=== PATIENT | female | born 1995 | race Caucasian/White ===

== ENCOUNTER 2016-10-14 00:14 | Emergency (ER) | payer OTHER ==
[2016-10-14] MEDS ORDERED: ONDANSETRON 4MG/2ML VIAL (J2405) As Ordered ONE (01:19)
[2016-10-14] MEDS ORDERED: ONDANSETRON 4 MG ORAL DISINTEGRATING TAB (S0181) As Ordered ONE (02:41)
--- NOTE | 2016-10-14 03:05 | EDDOCDS ---
Nurse's Notes [facility] Name: Pricilla West Age: 21 yrs Sex: Female : 1995 Arrival Date: 10/14/2016 Time: 00:14 Bed 8 Private MD: Diagnosis: Other viral enteritis Presentation: 10/14 00:24 Presenting complaint: Patient states: she developed N/V/D in the waiting room while cz sitting with who is here with same symptoms. Adult Sepsis Screening: The patient does not have new or worsening altered mentation. Patient's respiratory rate is less than 22. Systolic blood pressure is greater than 100. Patient has a qSOFA score of 0- Negative Sepsis Screen. Suicide/Homicide risk assessment- the patient denies having any suicidal and/or homicidal ideations and does not present with any other emotional, behavioral or mental health complaints. Status: The patient is a dependent. Transition of care: patient was not received from another setting of care. 00:24 Acuity: YUDELKA Level 3 cz 00:24 Method Of Arrival: Walkin/Carried/Asstd cz Triage Assessment: 00:25 General: Appears in no apparent distress. Pain: Location: abdomen Pain currently is 5 cz out of 10 on a pain scale. Pt Declines HIV testing. 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 none - PMHx: none; - PSHx: none; - The history from nurses notes was reviewed: and I agree with what is documented. - Social history: Smoking status: Patient states was never smoker of tobacco. No barriers to communication noted, The patient speaks fluent Turkish, Speaks appropriately for age. - : The pt / caregiver states he / she is not on anticoagulants. Home medication list is obtained from the patient. - Hospitalizations: : No recent hospitalization is reported. - Exposure Risk Screening:: None identified. - Immunization history:: All immunizations up-to-date. - Family history: Not pertinent. - Social history:: the patient is a non-smoker, the patient does not drink alcohol. Screenin:45 Screening information is obtained from the patient. Fall risk: No risks identified. ko2 Assistance ADL's: requires no assistance with activities of daily living. Abuse/DV Screen: The patient / caregiver reports he/she is: not in a situation that causes fear, pain or injury. Nutritional screening: No deficits noted. Advance Directives: Currently, there is no health care proxy. There is no active DNR order. There is no living will. There is no Power of Sports Nutritionist. home support is adequate. Assessment: 00:45 General: Appears in no apparent distress, comfortable, Behavior is appropriate for age, ko2 cooperative. Neurological: Level of Consciousness is awake, alert. Respiratory: Airway is patent Respiratory effort is even, unlabored. GI: Abdomen is distended, Bowel sounds present X 4 quads. Abd is soft X 4 quads Reports diarrhea, nausea, vomiting. Derm: No deficits noted. 01:45 General: Appears in no apparent distress, comfortable, Behavior is appropriate for age, ko2 cooperative. Neurological: Level of Consciousness is awake, alert. Respiratory: Airway is patent Respiratory effort is even, unlabored. Derm: No deficits noted. 02:55 GI: Denies vomiting. oct 02:55 General: Appears in no apparent distress, comfortable, Behavior is cooperative, giovana pleasant. Respiratory: Airway is patent Respiratory effort is even, unlabored, Respiratory pattern is regular, symmetrical. Derm: Skin is pink, warm & dry. Vital Signs: 00:25 BP 119 / 68; Pulse 95; Resp 16; Temp 97.4(T); Pulse Ox 99% on R/A; Weight 50.35 kg; cz Height 5 ft. 3 in. (160.02 cm); 02:43 BP 105 / 54; Pulse 92; Resp 18; Temp 98.1(O); Pulse Ox 100% on R/A; Pain 0/10; jmv 00:25 Body Mass Index 19.66 (50.35 kg, 160.02 cm) Vitals: 00:25 Log In Time: October 14, 2016 at 00:17. ED Course: 00:16 Patient visited by Brigida Marr. lja 00:16 Patient moved to Waiting lja 00:22 Patient moved to Triage 1 cz 00:25 Triage Initiated cz 00:28 Patient moved to Pre RCE cz 00:40 Merle Cuello,RN is Primary Nurse. jmb 00:40 Patient moved to 8 jmb 00:56 Osvaldo Enrique MD is Attending Physician. pc 00:59 Patient visited by Osvaldo Enrique MD. pc 01:11 Inserted saline lock: 20 gauge in right antecubital area. mgs 01:27 The patient / caregiver is instructed regarding the plan of care and ED course. ko2 01:45 Patient visited by Merle Cuello RN. ko2 02:37 [facility] is Referral Physician. pc 02:44 Patient visited by Ankit Guzman PCA. jmv 02:55 Discontinued lock bleeding controlled, pressure dressing applied, No redness/swelling giovana at site. No procedures done that require assistance. Administered Medications: 01:26 Drug: NS 0.9% 1000 ml [sodium chloride 0.9 % intravenous solution] Route: IV; Rate: mgs bolus; Site: right antecubital; 03:00 Follow up: IV Status: Completed infusion; IV Intake: 1000ml ko2 01:26 Drug: Ondansetron 4 mg [ondansetron HCl 2 mg/mL intravenous solution (2 mL)] Route: mgs IVP; Site: right antecubital; 02:53 Drug: Ondansetron ODT 4 mg [ondansetron 4 mg disintegrating tablet (1 tabs)] Route: PO; giovana Intake: 02:55 IV: 1000.00ml (NS); Total: 1000.00ml. giovana 03:00 IV: 1000.00ml; Total: 2000.00ml. ko2 Order Results: There are currently no results for this order. Outcome: 02:37 Discharge ordered by Provider. pc 03:04 Patient left the ED. giovana Signatures: Osvaldo Enrique MD MD pc Newman, Jill New, RN RN jan Zecher, Calvin, RN RN cz Becker, Joshua, RN RN jmb Ogden, Kari, RN RN ko2 Albert Pace,Brigida Michele RN, Jose, PCA TRAIN CALLER jmv Corrections: (The following items were deleted from the chart) 01:25 General: Appears in no apparent distress, comfortable, Behavior is appropriate ko2 for age, cooperative, ko2 01:25 Neurological: Level of Consciousness is awake, alert, ko2 ko2 01:25 Respiratory: Airway is patent Respiratory effort is even, unlabored, ko2 ko2 01:25 GI: Abdomen is distended, Bowel sounds present X 4 quads. Abd is soft X 4 quads ko2 Reports diarrhea, nausea, vomiting, ko2 01:26 01:25 Derm: No deficits noted. ko2 ko2 MTDD
--- NOTE | 2016-10-14 03:05 | EDDOCDS ---
Physician Documentation [facility] Name: Pricilla West Age: 21 yrs Sex: Female : 1995 Arrival Date: 10/14/2016 Time: 00:14 Bed 8 Private MD: Disposition: 10/14 02:35 Critical Care: Critical care not applicable. pc Disposition: 10/14/16 02:37 Discharged to Home/Self Care. Impression: Other viral enteritis. - Condition is Stable. - Discharge Instructions: Clear Liquid Diet, Viral Gastroenteritis. - Prescriptions for ZOFRAN ODT 4 mg - dissolve 1 tablet by ORAL route 4 times per day As needed do not chew, do not swallow whole; 10 tablet. - Medication Reconciliation, Local Pharmacy Hours form. - Follow up: [facility]; When: As needed; Reason: Continuance of care. - Problem is new. - Symptoms have improved. HPI: 00:56 This 21 yrs old Female presents to ER via Walkin/Carried/Asstd with pc complaints of Nausea/Vomiting/Diarrhea. 00:56 The history is obtained from the patient. She ate fast food they bought 4 hours prior pc to eating it, and 2 hours later, she developed abdominal cramps, n/v/d. She denies any fevers, symptoms. Her spouse who ate the same food has the same symptoms. The patient has not experienced similar symptoms in the past. The patient has not recently seen a physician. Historical: - Allergies: No known drug Allergies; - Home Meds: 1. none - PMHx: none; - PSHx: none; - The history from nurses notes was reviewed: and I agree with what is documented. - Social history: Smoking status: Patient states was never smoker of tobacco. No barriers to communication noted, The patient speaks fluent Monegasque, Speaks appropriately for age. - : The pt / caregiver states he / she is not on anticoagulants. Home medication list is obtained from the patient. - Hospitalizations: : No recent hospitalization is reported. - Exposure Risk Screening:: None identified. - Immunization history:: All immunizations up-to-date. - Family history: Not pertinent. - Social history:: the patient is a non-smoker, the patient does not drink alcohol. 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 pc Exam: 00:56 General Appearance: no acute distress, alert. pc 00:56 EENT: normal eye inspection, ears, nose and throat normal, mucous membranes dry. 00:56 Neck: The exam reveals no acute abnormalities. ROM is normal and painless. No nuchal rigidity is noted.. 00:56 Respiratory: no respiratory distress, normal breath sounds. 00:56 CVS: regular pulse rate, regular rhythm, normal S1 and S2, no murmurs, strong peripheral pulses. 00:56 Abdomen: soft, non-tender, no organomegaly, bowel sounds hyperactive. 00:56 Back: normal inspection. 00:56 Skin: skin color is normal, warm, dry. 00:56 Extremities: The extremities have a grossly normal appearance, are non-tender, without acute ROM abnormalities. 00:56 Neuro: oriented x 3, cranial nerves normal as tested, no motor deficits, no sensory deficits. Vital Signs: 00:25 BP 119 / 68; Pulse 95; Resp 16; Temp 97.4(T); Pulse Ox 99% on R/A; Weight 50.35 kg / cz 111 lbs; Height 5 ft. 3 in. (160.02 cm); 02:43 BP 105 / 54; Pulse 92; Resp 18; Temp 98.1(O); Pulse Ox 100% on R/A; Pain 0/10; jmv 00:25 Body Mass Index 19.66 (50.35 kg, 160.02 cm) cz MDM: 00:56 IV Saline Lock ordered. pc 00:56 NS 0.9% 1000 ml IV at bolus once ordered. pc 00:56 Ondansetron 4 mg IVP once ordered. pc 00:56 Differential Diagnosis: VVGE. Plan: meds, IVF. pc 02:35 Data reviewed: old medical records, vital signs, nurses notes. Test interpretation: pc none. The patient has been re-examined and re-evaluated. The patient's symptoms have markedly improved after treatment. Disposition: The historical points, examination findings, and any diagnostic results supporting the provided diagnosis, were discussed with the patient or legal guardian. The need for outpatient follow up with the provider listed on their discharge instructions was discussed. They were encouraged to return to [facility], or the nearest ED, if symptoms worsen/persist, or for any other questions/concerns. 02:36 Ondansetron ODT Oral Disintegrating Tablet 4 mg PO Per package directions; dispense 2 pc to go: 1 po q4h prn for nausea ordered. Administered Medications: 01:26 Drug: NS 0.9% 1000 ml [sodium chloride 0.9 % intravenous solution] Route: IV; Rate: mgs bolus; Site: right antecubital; 03:00 Follow up: IV Status: Completed infusion; IV Intake: 1000ml ko2 01:26 Drug: Ondansetron 4 mg [ondansetron HCl 2 mg/mL intravenous solution (2 mL)] Route: mgs IVP; Site: right antecubital; 02:53 Drug: Ondansetron ODT 4 mg [ondansetron 4 mg disintegrating tablet (1 tabs)] Route: PO; giovana Signatures: Osvaldo Enrique MD MD pc Newman, Jill New, RN RN jan Zecher, Calvin, RN RN cz Ogden, Kari RN koAlbert Cherry RN mgs MTDLauren
--- NOTE | 2016-10-16 04:05 | EDDOCDS ---
Nurse's Notes [facility] Name: Pricilla West Age: 21 yrs Sex: Female : 1995 Arrival Date: 10/14/2016 Time: 00:14 Bed 8 Private MD: Diagnosis: Other viral enteritis Presentation: 10/14 00:24 Presenting complaint: Patient states: she developed N/V/D in the waiting room while cz sitting with who is here with same symptoms. Adult Sepsis Screening: The patient does not have new or worsening altered mentation. Patient's respiratory rate is less than 22. Systolic blood pressure is greater than 100. Patient has a qSOFA score of 0- Negative Sepsis Screen. Suicide/Homicide risk assessment- the patient denies having any suicidal and/or homicidal ideations and does not present with any other emotional, behavioral or mental health complaints. Status: The patient is a dependent. Transition of care: patient was not received from another setting of care. 00:24 Acuity: YUDELKA Level 3 cz 00:24 Method Of Arrival: Walkin/Carried/Asstd cz Triage Assessment: 00:25 General: Appears in no apparent distress. Pain: Location: abdomen Pain currently is 5 cz out of 10 on a pain scale. Pt Declines HIV testing. 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 none - PMHx: none; - PSHx: none; - The history from nurses notes was reviewed: and I agree with what is documented. - Social history: Smoking status: Patient states was never smoker of tobacco. No barriers to communication noted, The patient speaks fluent Romansh, Speaks appropriately for age. - : The pt / caregiver states he / she is not on anticoagulants. Home medication list is obtained from the patient. - Hospitalizations: : No recent hospitalization is reported. - Exposure Risk Screening:: None identified. - Immunization history:: All immunizations up-to-date. - Family history: Not pertinent. - Social history:: the patient is a non-smoker, the patient does not drink alcohol. Screenin:45 Screening information is obtained from the patient. Fall risk: No risks identified. ko2 Assistance ADL's: requires no assistance with activities of daily living. Abuse/DV Screen: The patient / caregiver reports he/she is: not in a situation that causes fear, pain or injury. Nutritional screening: No deficits noted. Advance Directives: Currently, there is no health care proxy. There is no active DNR order. There is no living will. There is no Power of [employer]. home support is adequate. Assessment: 00:45 General: Appears in no apparent distress, comfortable, Behavior is appropriate for age, ko2 cooperative. Neurological: Level of Consciousness is awake, alert. Respiratory: Airway is patent Respiratory effort is even, unlabored. GI: Abdomen is distended, Bowel sounds present X 4 quads. Abd is soft X 4 quads Reports diarrhea, nausea, vomiting. Derm: No deficits noted. 01:45 General: Appears in no apparent distress, comfortable, Behavior is appropriate for age, ko2 cooperative. Neurological: Level of Consciousness is awake, alert. Respiratory: Airway is patent Respiratory effort is even, unlabored. Derm: No deficits noted. 02:55 GI: Denies vomiting. oct 02:55 General: Appears in no apparent distress, comfortable, Behavior is cooperative, giovana pleasant. Respiratory: Airway is patent Respiratory effort is even, unlabored, Respiratory pattern is regular, symmetrical. Derm: Skin is pink, warm & dry. Vital Signs: 00:25 BP 119 / 68; Pulse 95; Resp 16; Temp 97.4(T); Pulse Ox 99% on R/A; Weight 50.35 kg; cz Height 5 ft. 3 in. (160.02 cm); 02:43 BP 105 / 54; Pulse 92; Resp 18; Temp 98.1(O); Pulse Ox 100% on R/A; Pain 0/10; jmv 00:25 Body Mass Index 19.66 (50.35 kg, 160.02 cm) Vitals: 00:25 Log In Time: October 14, 2016 at 00:17. ED Course: 00:16 Patient visited by Brigida Marr. lja 00:16 Patient moved to Waiting lja 00:22 Patient moved to Triage 1 cz 00:25 Triage Initiated cz 00:28 Patient moved to Pre RCE cz 00:40 Merle Cuello,RN is Primary Nurse. jmb 00:40 Patient moved to 8 jmb 00:56 Osvaldo Enrique MD is Attending Physician. pc 00:59 Patient visited by Osvaldo Enrique MD. pc 01:11 Inserted saline lock: 20 gauge in right antecubital area. mgs 01:27 The patient / caregiver is instructed regarding the plan of care and ED course. ko2 01:45 Patient visited by Merle Cuello RN. ko2 02:37 [facility] is Referral Physician. pc 02:44 Patient visited by Aknit Guzman PCA. jmv 02:55 Discontinued lock bleeding controlled, pressure dressing applied, No redness/swelling giovana at site. No procedures done that require assistance. 03:57 [facility] Payment Agreement was scanned into [employer] and attached to record. hs2 Administered Medications: 01:26 Drug: NS 0.9% 1000 ml [sodium chloride 0.9 % intravenous solution] Route: IV; Rate: mgs bolus; Site: right antecubital; 03:00 Follow up: IV Status: Completed infusion; IV Intake: 1000ml ko2 01:26 Drug: Ondansetron 4 mg [ondansetron HCl 2 mg/mL intravenous solution (2 mL)] Route: mgs IVP; Site: right antecubital; 02:53 Drug: Ondansetron ODT 4 mg [ondansetron 4 mg disintegrating tablet (1 tabs)] Route: PO; giovana Intake: 02:55 IV: 1000.00ml (NS); Total: 1000.00ml. giovana 03:00 IV: 1000.00ml; Total: 2000.00ml. ko2 Order Results: There are currently no results for this order. Outcome: 02:37 Discharge ordered by Provider. pc 03:04 Patient left the ED. giovana Signatures: Osvaldo Enrique MD MD pc Newman, Jill New, RN RN jan Zecher, Calvin, RN RN cz Becker, Joshua, RN RN jmb Ogden, Kari, RN RN ko2 Albert Pace,FAHAD isaacs Justa, Kendra De La Fuente, Reg Reg hs2 Ankit Guzman PCA PCA [facility] Corrections: (The following items were deleted from the chart) 01:25 General: Appears in no apparent distress, comfortable, Behavior is appropriate ko2 for age, cooperative, ko2 01:25 Neurological: Level of Consciousness is awake, alert, ko2 ko2 01:25 Respiratory: Airway is patent Respiratory effort is even, unlabored, ko2 ko2 01:25 GI: Abdomen is distended, Bowel sounds present X 4 quads. Abd is soft X 4 quads ko2 Reports diarrhea, nausea, vomiting, ko2 01:25 Derm: No deficits noted. ko2 ko2 Chart Complete MTDD
--- NOTE | 2016-10-16 04:05 | EDDOCDS ---
Physician Documentation [facility] Name: Pricilla West Age: 21 yrs Sex: Female : 1995 Arrival Date: 10/14/2016 Time: 00:14 Bed 8 Private MD: Disposition: 10/14 02:35 Critical Care: Critical care not applicable. pc Disposition: 10/14/16 02:37 Discharged to Home/Self Care. Impression: Other viral enteritis. - Condition is Stable. - Discharge Instructions: Clear Liquid Diet, Viral Gastroenteritis. - Prescriptions for ZOFRAN ODT 4 mg - dissolve 1 tablet by ORAL route 4 times per day As needed do not chew, do not swallow whole; 10 tablet. - Medication Reconciliation, Local Pharmacy Hours form. - Follow up: [facility] Bo[facility]; When: As needed; Reason: Continuance of care. - Problem is new. - Symptoms have improved. HPI: 00:56 This 21 yrs old Female presents to ER via Walkin/Carried/Asstd with pc complaints of Nausea/Vomiting/Diarrhea. 00:56 The history is obtained from the patient. She ate fast food they bought 4 hours prior pc to eating it, and 2 hours later, she developed abdominal cramps, n/v/d. She denies any fevers, symptoms. Her spouse who ate the same food has the same symptoms. The patient has not experienced similar symptoms in the past. The patient has not recently seen a physician. Historical: - Allergies: No known drug Allergies; - Home Meds: 1. none - PMHx: none; - PSHx: none; - The history from nurses notes was reviewed: and I agree with what is documented. - Social history: Smoking status: Patient states was never smoker of tobacco. No barriers to communication noted, The patient speaks fluent Ghanaian, Speaks appropriately for age. - : The pt / caregiver states he / she is not on anticoagulants. Home medication list is obtained from the patient. - Hospitalizations: : No recent hospitalization is reported. - Exposure Risk Screening:: None identified. - Immunization history:: All immunizations up-to-date. - Family history: Not pertinent. - Social history:: the patient is a non-smoker, the patient does not drink alcohol. 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 pc Exam: 00:56 General Appearance: no acute distress, alert. pc 00:56 EENT: normal eye inspection, ears, nose and throat normal, mucous membranes dry. 00:56 Neck: The exam reveals no acute abnormalities. ROM is normal and painless. No nuchal rigidity is noted.. 00:56 Respiratory: no respiratory distress, normal breath sounds. 00:56 CVS: regular pulse rate, regular rhythm, normal S1 and S2, no murmurs, strong peripheral pulses. 00:56 Abdomen: soft, non-tender, no organomegaly, bowel sounds hyperactive. 00:56 Back: normal inspection. 00:56 Skin: skin color is normal, warm, dry. 00:56 Extremities: The extremities have a grossly normal appearance, are non-tender, without acute ROM abnormalities. 00:56 Neuro: oriented x 3, cranial nerves normal as tested, no motor deficits, no sensory deficits. Vital Signs: 00:25 BP 119 / 68; Pulse 95; Resp 16; Temp 97.4(T); Pulse Ox 99% on R/A; Weight 50.35 kg / cz 111 lbs; Height 5 ft. 3 in. (160.02 cm); 02:43 BP 105 / 54; Pulse 92; Resp 18; Temp 98.1(O); Pulse Ox 100% on R/A; Pain 0/10; jmv 00:25 Body Mass Index 19.66 (50.35 kg, 160.02 cm) cz MDM: 00:56 IV Saline Lock ordered. pc 00:56 NS 0.9% 1000 ml IV at bolus once ordered. pc 00:56 Ondansetron 4 mg IVP once ordered. pc 00:56 Differential Diagnosis: VVGE. Plan: meds, IVF. pc 02:35 Data reviewed: old medical records, vital signs, nurses notes. Test interpretation: pc none. The patient has been re-examined and re-evaluated. The patient's symptoms have markedly improved after treatment. Disposition: The historical points, examination findings, and any diagnostic results supporting the provided diagnosis, were discussed with the patient or legal guardian. The need for outpatient follow up with the provider listed on their discharge instructions was discussed. They were encouraged to return to [facility], or the nearest ED, if symptoms worsen/persist, or for any other questions/concerns. 02:36 Ondansetron ODT Oral Disintegrating Tablet 4 mg PO Per package directions; dispense 2 pc to go: 1 po q4h prn for nausea ordered. 03:56 Financial registration complete. hs2 03:57 [facility] Payment Agreement was scanned into [employer] and attached to record. hs2 Administered Medications: 01:26 Drug: NS 0.9% 1000 ml [sodium chloride 0.9 % intravenous solution] Route: IV; Rate: mgs bolus; Site: right antecubital; 03:00 Follow up: IV Status: Completed infusion; IV Intake: 1000ml ko2 01:26 Drug: Ondansetron 4 mg [ondansetron HCl 2 mg/mL intravenous solution (2 mL)] Route: mgs IVP; Site: right antecubital; 02:53 Drug: Ondansetron ODT 4 mg [ondansetron 4 mg disintegrating tablet (1 tabs)] Route: PO; giovana Signatures: Osvaldo Enrique MD MD pc Newman, Jill New, RN RN jan Zecher, Calvin, RN RN cz Kendra Carey, Reg Reg hs2 Merle Cuello RN ko2 Albert Pace RN mgs The chart was reviewed and I authenticate all verbal orders and agree with the evaluation and treatment provided.Attachments: 03:57 [facility] Payment Agreement hs2 Chart Complete MTDD
--- NOTE | 2016-10-16 04:06 | EDDOCDS ---
Physician Documentation [facility] Name: Pricilla West Age: 21 yrs Sex: Female : 1995 Arrival Date: 10/14/2016 Time: 00:14 Bed 8 Private MD: Disposition: 10/14 02:35 Critical Care: Critical care not applicable. pc Disposition: 10/14/16 02:37 Discharged to Home/Self Care. Impression: Other viral enteritis. - Condition is Stable. - Discharge Instructions: Clear Liquid Diet, Viral Gastroenteritis. - Prescriptions for ZOFRAN ODT 4 mg - dissolve 1 tablet by ORAL route 4 times per day As needed do not chew, do not swallow whole; 10 tablet. - Medication Reconciliation, Local Pharmacy Hours form. - Follow up: [facility]; When: As needed; Reason: Continuance of care. - Problem is new. - Symptoms have improved. HPI: 00:56 This 21 yrs old Female presents to ER via Walkin/Carried/Asstd with pc complaints of Nausea/Vomiting/Diarrhea. 00:56 The history is obtained from the patient. She ate fast food they bought 4 hours prior pc to eating it, and 2 hours later, she developed abdominal cramps, n/v/d. She denies any fevers, symptoms. Her spouse who ate the same food has the same symptoms. The patient has not experienced similar symptoms in the past. The patient has not recently seen a physician. Historical: - Allergies: No known drug Allergies; - Home Meds: 1. none - PMHx: none; - PSHx: none; - The history from nurses notes was reviewed: and I agree with what is documented. - Social history: Smoking status: Patient states was never smoker of tobacco. No barriers to communication noted, The patient speaks fluent Kos[place], Speaks appropriately for age. - : The pt / caregiver states he / she is not on anticoagulants. Home medication list is obtained from the patient. - Hospitalizations: : No recent hospitalization is reported. - Exposure Risk Screening:: None identified. - Immunization history:: All immunizations up-to-date. - Family history: Not pertinent. - Social history:: the patient is a non-smoker, the patient does not drink alcohol. 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 pc Exam: 00:56 General Appearance: no acute distress, alert. pc 00:56 EENT: normal eye inspection, ears, nose and throat normal, mucous membranes dry. 00:56 Neck: The exam reveals no acute abnormalities. ROM is normal and painless. No nuchal rigidity is noted.. 00:56 Respiratory: no respiratory distress, normal breath sounds. 00:56 CVS: regular pulse rate, regular rhythm, normal S1 and S2, no murmurs, strong peripheral pulses. 00:56 Abdomen: soft, non-tender, no organomegaly, bowel sounds hyperactive. 00:56 Back: normal inspection. 00:56 Skin: skin color is normal, warm, dry. 00:56 Extremities: The extremities have a grossly normal appearance, are non-tender, without acute ROM abnormalities. 00:56 Neuro: oriented x 3, cranial nerves normal as tested, no motor deficits, no sensory deficits. Vital Signs: 00:25 BP 119 / 68; Pulse 95; Resp 16; Temp 97.4(T); Pulse Ox 99% on R/A; Weight 50.35 kg / cz 111 lbs; Height 5 ft. 3 in. (160.02 cm); 02:43 BP 105 / 54; Pulse 92; Resp 18; Temp 98.1(O); Pulse Ox 100% on R/A; Pain 0/10; jmv 00:25 Body Mass Index 19.66 (50.35 kg, 160.02 cm) cz MDM: 00:56 IV Saline Lock ordered. pc 00:56 NS 0.9% 1000 ml IV at bolus once ordered. pc 00:56 Ondansetron 4 mg IVP once ordered. pc 00:56 Differential Diagnosis: VVGE. Plan: meds, IVF. pc 02:35 Data reviewed: old medical records, vital signs, nurses notes. Test interpretation: pc none. The patient has been re-examined and re-evaluated. The patient's symptoms have markedly improved after treatment. Disposition: The historical points, examination findings, and any diagnostic results supporting the provided diagnosis, were discussed with the patient or legal guardian. The need for outpatient follow up with the provider listed on their discharge instructions was discussed. They were encouraged to return to [facility], or the nearest ED, if symptoms worsen/persist, or for any other questions/concerns. 02:36 Ondansetron ODT Oral Disintegrating Tablet 4 mg PO Per package directions; dispense 2 pc to go: 1 po q4h prn for nausea ordered. 03:56 Financial registration complete. hs2 03:57 [facility] Payment Agreement was scanned into [employer] and attached to record. hs2 Administered Medications: 01:26 Drug: NS 0.9% 1000 ml [sodium chloride 0.9 % intravenous solution] Route: IV; Rate: mgs bolus; Site: right antecubital; 03:00 Follow up: IV Status: Completed infusion; IV Intake: 1000ml ko2 01:26 Drug: Ondansetron 4 mg [ondansetron HCl 2 mg/mL intravenous solution (2 mL)] Route: mgs IVP; Site: right antecubital; 02:53 Drug: Ondansetron ODT 4 mg [ondansetron 4 mg disintegrating tablet (1 tabs)] Route: PO; giovana Signatures: Osvaldo Enrique MD MD pc Newman, Jill New, RN RN jan Zecher, Calvin, RN RN cz Kendra Craey, Reg Reg hs2 Merle Cuello RN ko2 Albert Pace RN mgs The chart was reviewed and I authenticate all verbal orders and agree with the evaluation and treatment provided.Attachments: 03:57 [facility] Payment Agreement hs2 Chart Complete MTDD
== END 2016-10-14 03:04 | disposition home or self-care (01) ==
LOC: M ED 00:14
DX: A08.4 Viral intestinal infection, unspecified (principal)
CPT/HCPCS: 96361; 96374; 99283; J2405

== ENCOUNTER 2017-04-23 10:55 | Emergency (ER) | payer OTHER ==
[~2017-04-23] VITALS: Ht 167.6 cm; Wt 51.3 kg
[2017-04-23] MEDS ORDERED: KETOROLAC 30 MG/ML VIAL (J1885) IV ONE (13:00)
[2017-04-23] MEDS ORDERED: NS 1,000 ML IV ONE (13:00)
[2017-04-23] MEDS ORDERED: ONDANSETRON 4MG/2ML VIAL (J2405) IV ONE (13:00)
[2017-04-23 13:44] LABS: ADD MANUAL DIFFER YES; DIFF SLIDE NUMBER 221; MEAN CORPUSCULAR HEMOGLOBIN 30.8 pg (27.0-33.0); MEAN CORPUSCULAR HGB CONC 33.7 g/dl (32.0-36.5); MEAN CORPUSCULAR VOLUME 91.4 fl (80.0-96.0); PLATELET COUNT, AUTOMATED 157 k/mm3 (150-450); RED CELL DISTRIBUTION WIDTH 12.2 % (11.5-14.5); WHITE BLOOD COUNT 7.3 K/mm3 (4.0-10.0)
[2017-04-23 14:04] LABS: ALBUMIN 4.6 GM/DL (3.2-5.2); ALBUMIN/GLOBULIN RATIO 1.24 (1.00-1.93); ALKALINE PHOSPHATASE 39 U/L (45-117); ALT/SGPT 64 U/L (12-78); AMYLASE 85 U/L (25-115); ANION GAP 6 MEQ/L (8-16); AST/SGOT 35 U/L (15-37); BILIRUBIN,DIRECT 0.2 MG/DL (0.0-0.2); BILIRUBIN,TOTAL 0.8 MG/DL (0.2-1.0); BLOOD UREA NITROGEN 15 MG/DL (7-18); CALCIUM LEVEL 9.1 MG/DL (8.5-10.1); CARBON DIOXIDE LEVEL 28 MEQ/L (21-32); CHLORIDE LEVEL 103 MEQ/L (98-107); CREATININE FOR GFR 0.72 MG/DL (0.55-1.02); GLOMERULAR FILTRATION RATE > 60.0 (>60); GLUCOSE, FASTING 116 MG/DL (70-105); POTASSIUM SERUM 3.3 MEQ/L (3.5-5.1); SODIUM LEVEL 137 MEQ/L (136-145); TOTAL PROTEIN 8.3 GM/DL (6.4-8.2)
[2017-04-23] MEDS ORDERED: ZOFR4TAB3 PO (14:14)
[2017-04-23] MEDS ORDERED: ZANT300T PO (14:14)
[2017-04-23 14:29] VITALS: BP 101/55
== END 2017-04-23 14:39 | disposition home or self-care (01) ==
LOC: M ED 10:55
DX: R10.84 Generalized abdominal pain (principal); R11.2 Nausea with vomiting, unspecified
CPT/HCPCS: 80048; 80076; 81001; 81025; 82150; 83690; 85025; 96361; 96374; 96375; 99283; J1885; J2405